=== PATIENT | male | born 1985 | race Hispanic/Latino ===

== ENCOUNTER 2017-07-06 04:58 | Emergency (ER) | payer MEDICAID ==
[2017-07-06 05:12] VITALS: BP 134/86
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
[2017-07-06] MEDS ORDERED: Diphtheria,Pertussis(Acell),Tetanus Vaccine 0.5 ML SDV IM ONE (05:42)
--- NOTE | 2017-07-06 08:29 | CR ---
Right hand: Four views of the right hand were obtained. Comparison: No previous study. Cyst identified within the third metacarpal head which is incidental. Joint spaces are maintained. No acute fracture or other bony abnormality is seen. Impression: 1. Incidental cyst as described above. 2. No acute bony abnormality is identified on right hand exam. Diagnostic code #1
== END 2017-07-06 06:08 | disposition home or self-care (01) ==
LOC: JD.ED 04:58
DX: S61.210A Laceration without foreign body of right index finger without damage to nail, initial encounter (principal); S61.212A Laceration without foreign body of right middle finger without damage to nail, initial encounter; Z23 Encounter for immunization; F17.210 Nicotine dependence, cigarettes, uncomplicated; W23.0XXA Caught, crushed, jammed, or pinched between moving objects, initial encounter
CPT/HCPCS: 73130-26-RT; 73130-RT; 90471; 90715; 99284; 99284-25